=== PATIENT | female | born 1990 | race Caucasian/White ===

== ENCOUNTER 2023-06-04 08:59 | Day surgery (SDC) | payer SELFPAY, OTHER ==
[2023-06-04] VITALS (9 sets, daily range): BP systolic 93–111; BP diastolic 49–68; PULSE 63–97; RESP 16–20; TEMP 36.6–37.4; O2SAT 95–100; BMI 21.9
--- NOTE | 2023-06-04 | HERN_PTH ---
PATIENT: JUAN ARMAS LOC: [facility] [place][id number] AGE/SX: 33/ ROOM: RE06/04/[address]: Dr. Jarad Calhoun MD : 1990 BED: DIS: 06/04/2023 SPEC #: [id number] RECD: 06/04/23 13:37 STATUS: [place] #: [id number] AMANDA: 06/04/23 00:[address]: Jarad Calhoun DEPT: SURGICAL PATHOLOGY RECD BY: Fred Ervin ENTERED: 06/07/23 10:11 SP TYPE: Hernia OTHR DR: Dr. Hal Bland, DO Tissues: HERNIA Procedures: Surgery Specimen Level II HEADER OPERATION: Umbilical hernia repair with mesh PRE-OP DIAGNOSIS: Umbilical hernia TISSUE SUBMITTED: Hernia sac with contents MICROSCOPIC DIAGNOSIS Hernia sac with contents: Mesothelial-lined fibroadipose and fibroconnective tissue, consistent with hernia sac with focal chronic inflammation, fibrosis and reactive changes. CM:oziel 06/08/2023 MICROSCOPIC DESCRIPTION Slides are reviewed. GROSS DESCRIPTION Received in fixative is one container labeled with the patient's name and designated hernia sac and contents. The specimen consists of multiple pieces of yellow adipose tissue that in aggregate measure 3.5 x 3.5 x 1.5 cm. No mass lesion is identified. Focal mcclain, indurated area is noted. Drum Stock Clerk sections are submitted in two cassettes. / CM:oziel 06/07/2023 TC:5 CPT: 95482
[2023-06-04] MEDS: Lactated Ringers 1,000 ML 15 ML IV ×2 (09:40→12:44)
[2023-06-04 09:45] LABS: Hemoglobin 12.6 g/dL (12.0-15.0); Mean Corp Hgb Conc 31.5 g/dL (32-36); Mean Corpuscular Hgb 27.3 pg (27.0-32.0); Mean Corpuscular Volume 86.6 fL (81-99); Mean Platelet Vol. 10.3 fl (6.2-12.0); Platelet Count 232 K/mm3 (150-450); RBC Distribution Width CV 12.5 % (11.6-14.6); RBC Distribution Width SD 39.8 fl (35.1-43.9); Red Blood Count 4.62 M/mm3 (4.2-5.4); White Blood Count 6.5 K/mm3 (4.4-11.0)
[2023-06-04 10:04] LABS: Internal QC Validated? YES +Cl - CLEAR BKGD; Pregnancy, Urine Negative Negative
[2023-06-04 10:18] LABS: Anion Gap 4 (5-15); BUN 13 mg/dL (7-18); BUN/Creat Ratio 18.1 RATIO (10-20); Calcium,Total 8.6 mg/dL (8.5-10.1); Chloride 107 mmol/L (98-107); Creatinine, Serum 0.72 mg/dL (0.55-1.02); EST Glomerular Filtration Rate 100 mL/min (>60); Est Glom Filt Rate - Afr Amer 121 mL/min (>60); Estimated Creatinine Clearance 97.76 ml/min; Glucose 87 mg/dL (74-106); Potassium 3.7 mmol/L (3.5-5.1); Sodium Level 139 mmol/L (136-145)
--- NOTE | 2023-06-04 10:31 | DCINST_ITS ---
Discharge Instructions Procedure General Surgery Diet Discharge Diet: Light diet - advance as tolerated (if you have questions about your diet instructions, please talk to you doctor.) Activity Discharge Activity: May Not Drive (for 3-5 days or while taking narcotic pain medicine.) May shower in (days): 1 Lifting Restrictions: 10 pounds Dressing / Incision Call your doctor if your incision/area has: Continuous Slow Oozing, Sudden Increased Bleeding, Increased Pain/ Swelling, Increased Redness and Foul Smelling Discharge Call your doctor if you observe: Fever of 101 or Higher Suture Line Care: Avoid Pulling/Pushing and Avoid Pinching/Bending Additional Dressing/Incision Instructions:: Change or remove dressing in 4 days. Leave steri-strips in place for 1 week. Follow Up Care Please Follow Up With: Jarad Calhoun MD When: Call [phone] to make an appointment to be seen in about 10 days. Test Results: Test results from this visit will be discussed in further detail at your follow- up appointment, if applicable. Discharge Plan Admission Attending Provider: Jarad Calhoun Primary Care Provider: Hal Bland Discharge Orders/Prescriptions Prescriptions: No Action multivitamin [Daily Multi-Vitamin] Tablet 1 tab PO DAILY Disposition Disposition (needs filled in before D/C Order can be placed): Home, Self Care
--- NOTE | 2023-06-04 10:31 | PCM.HP.BLA ---
History and Physical Date of Admission: 06/04/23 Visit Reasons: UMBILICAL HERNIA Chief Complaint: umbilica hernia Is patient in pain?: No Allergies No Known Allergies Allergy (Unverified 05/11/23 07:19) Medications NK 05/11/23 [History Confirmed 05/11/23] [facility] Social History (Updated 05/11/23 @ 07:18 by Mima Miguel) Smoking Status: Never smoker alcohol intake: never substance use type: does not use HPI HPI HPI: 33-year-old female is being referred by Dr. Hal Bland for surgical consultation regarding an umbilical hernia and a written compromise surgical consult recommendations will be returned to him. Patient apparently has known about this hernia for at least a year but with coughing more recently has become symptomatic. She has had 6 pregnancies all vaginally delivered. Last a year ago. She otherwise enjoys good health. She is concerned because it is increasingly tender directly at the site of her hernia. She also thinks its been slowly enlarging. She presents with her today. They are interested in obtaining information and potential treatment. She has no other new GI symptoms. She has a long-term history of chronic constipation. ROS General General: Yes fatigue; No weight change, appetite, colon cancer, breast cancer or weakness HEENT HEENT: No difficulty swallowing, eye injury, eye surgery, swollen glands or hoarseness Endo Endocrine: No thyroid disease, diabetes mellitus, thyroid cancer, Hair loss, heat intolerance or cold intolerance Skin Skin: No rash or changing moles Musc Musculoskeletal: No back problems, arthritis, rheumatoid arthritis, gout or joint pain Cardio Cardiovascular: No murmur, pacemaker, heart disease, atrial fibrillation, high blood pressure, heart attack, heart stent, palpitations, shortness of breat with exertion or chest pain Psych Psychiatric: No depression, anxiety or hearing voices Resp Respiratory: No shortness of breath, No sleep apnea, No cough, No COPD, No asthma, No emphysema and No wheezing Gastro Gastrointestinal: Yes abdominal pain, Yes nausea or vomiting, No diarrhea, Yes constipation, No blood in stool, No acid reflux, No hemorrhoids, No ulcers, No gallbladder problem and No black,tarry stools Stephen Hematologic: No blood thinners, No blood disorders, No bleeding, No anemia and No blood clots Neuro Neurologic: No system reviewed and no additional complaints, except as documented, No as per HPI, No abnormal gait, No abnormal hearing, No abnormal movements, No abnormal speech, No behavioral changes, No burning sensations, No confusion, No convulsions, No disequilibrium, No dizziness, No localized weakness, No frequent falls, No headache(s), No lack of coordination, No loss of vision, No memory loss, No numbness, No other visual disturbances, No radicular pain, No restless legs, No sensory deficit, No syncope, No tingling, No tremor(s), No weakness and No other Exam Const General: cooperative, comfortable and no acute distress [facility] Head: normal to inspection Eyes General: appearance normal, both eyes and all related structures Neck Neck: normal visual inspection Chest Chest palpation & inspection: normal inspection of the chest Resp Effort & Inspection: normal respiratory effort Auscultation: clear to auscultation bilaterally Cardio Rate: regular rate Rhythm: regular rhythm GI Palpation: soft and no hepatosplenomegaly Auscultation: normal bowel sounds Musc Cervical Spine: normal cervical lordosis Skin General: no rashes or lesions noted Neuro General: patient alert, patient awake and patient oriented x3 Extrem General: no calf tenderness Psych Appearance: grossly normal Assessment and Plan Assessment and Plan (1) Umbilical hernia without obstruction or gangrene: Status: Acute Plan I recommended the patient umbilical herniorrhaphy with mesh. With the patient's present I discussed the technique, benefit, risk, alternatives. The patient may want to have additional future pregnancies. I have asked for at least a 3-month interim. To allow for her repair to initiate healing. Unfortunately no guarantees of's chronic long-term success have been offered. I would hope to get this mesh into the retrorectus space and be able to oversized the mesh placed. She has had an opportunity to ask and have questions answered. She does express interest and we will try to schedule procedure at her discretion. I appreciate the opportunity of assisting with her surgical care. Copy: Dr. Thuan Calhoun M.D., F.A.C.S. I have examined the patient and the H&P has been reviewed. There are no clinical changes since date of exam. Jarad Calhoun M.D., F.A.C.S.
[2023-06-04] MEDS: Cefazolin 2 GM in 0.9% Normal Saline 100 ML IV (10:57)
[2023-06-04] MEDS: Bupivacaine Mpf 0.5% 30 ML VIAL (11:40)
--- NOTE | 2023-06-04 11:44 | PCM.OPRPT ---
Report of Operation Date of Procedure: 06/04/23 Pre-Operative Diagnosis: Umbilical hernia Post-Operative Diagnosis: Umbilical hernia Surgery/Procedure Performed:: Umbilical herniorrhaphy with [address] mesh Lot number [id number], reference [id number], expiry date 11/24/2024 Description of Surgical Findings:: Timeout informed consent was obtained. 33-year-old female was taken to the operating placed on the table underwent general endotracheal intubation esthesia. Ancef 2 g were given intravenously preoperatively. Clean procedure. The abdomen was sterilely prepped and draped. A curvilinear incision was made in the inferior portion of the umbilicus sharp and blunt dissection was used to identify the preperitoneal fatty tissue within an umbilical hernia. The hernia sac and contents were excised sharply and with electrocautery. A retrorectus space was created. The peritoneum was approximated a running 3-0 Vicryl. A [address] mesh was placed into the retrorectus space. The tails were secured with interrupted 0 Nurolon. The fascia was closed transversely with interrupted 6-0 Nurolon including a small portion of the anterior aspect of the mesh. Good closure was achieved. Skin edges were approximated interrupted 4 Monocryl subdermal stitches. Surgical glue cotton ball Telfa OpSite applied. Sponge and instrument and needle counts were reported to the surgeon to be correct. 0.5% Marcaine was used as a local anesthetic and skin sites were preanesthetized. Throughout the procedure a total of 25 cc was used Specimen hernia sac and contents. Blood loss minimal. Drains none. The patient was taken to the recovery room in satisfied condition without apparent complication Jarad Calhoun M.D., F.A.C.S. Surgeon: Jarad Calhoun Type of Anesthesia: General and Local Anesthesiologist: Dago Sagastume
[2023-06-04] MEDS: Ketorolac 30 MG/ML Syringe IV (12:43)
--- NOTE | 2023-06-04 15:24 | SUR.PHASEII ---
patient awaiting ride to come get her. ETA 1600
== END 2023-06-04 15:23 | disposition home or self-care (01) ==
LOC: SDC 09:03 → AC 09:04
PROVIDERS: PCP Family Medicine; Referring Provider Surgery; Visit Provider Surgery
PROC: (CPT 49591; principal; 2023-06-04 10:45)
DX: K42.9 Umbilical hernia without obstruction or gangrene (principal)
CPT/HCPCS: 49591; 00830; 80048; 81025; 85027; 88302; J7120; C1781; J2405